=== PATIENT | male | born 1955 | race Caucasian/White ===

== ENCOUNTER 2017-08-21 15:26 | Emergency (ER) | payer OTHER ==
[~2017-08-21] VITALS: Ht 170.2 cm; Wt 96.6 kg
[2017-08-21 15:36] VITALS: BP 159/92
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
[2017-08-21] MEDS ORDERED: LIDOCAINE 2% 20 ML VIAL. IJ ONE (16:00)
[2017-08-21] MEDS ORDERED: NEOMY/BACITR/POLYMYXIN OINT PACKET. TP ONE (16:00)
[2017-08-21] MEDS ORDERED: CEPH500T PO (16:29)
[2017-08-21] MEDS ORDERED: LIDOCAINE/EPI/TETRACAINE TOPICAL GEL 3 ML. TP ONE (16:30)
== END 2017-08-21 17:04 | disposition home or self-care (01) ==
LOC: EEVIPCON 15:26 → ER 15:26 → EDBD 15:26 → ER 17:04
DX: S61.411A Laceration without foreign body of right hand, initial encounter (principal); I10 Essential (primary) hypertension; E78.00 Pure hypercholesterolemia, unspecified; E03.9 Hypothyroidism, unspecified; J44.9 Chronic obstructive pulmonary disease, unspecified; W06.XXXA Fall from bed, initial encounter; Y93.89 Activity, other specified; Y99.8 Other external cause status; Y92.89 Other specified places as the place of occurrence of the external cause
CPT/HCPCS: 73130; 96372; 99284-25; J2001